=== PATIENT | female | born 1980 | race Caucasian/White ===

== ENCOUNTER → 2018-07-19 | Emergency (ER) | payer MEDICAID ==
[~2018-07-19] VITALS: Ht 162.6 cm; Wt 54.0 kg
[~2018-07-19] MED LIST: BENZ-16 PO; GABA-530 PO; HYDROcodone/acetaminophen 5mg/325mg tablet PO ONE; NAPR-56 PO; benzonatate 100mg capsule PO ONE
[2018-07-19 09:40] VITALS: BP 119/82
== END | disposition home or self-care (01) ==
LOC: ER 09:28
DX: M94.0 Chondrocostal junction syndrome [Tietze] (principal); R05 Cough; F17.200 Nicotine dependence, unspecified, uncomplicated; Z88.6 Allergy status to analgesic agent; Z88.0 Allergy status to penicillin; Z88.1 Allergy status to other antibiotic agents
CPT/HCPCS: 99283

== ENCOUNTER 2018-07-27 10:28 | Emergency (ER) | payer MEDICAID ==
[~2018-07-27] VITALS: Ht 162.6 cm; Wt 54.6 kg
[~2018-07-27 10:28] MED LIST changes: -HYDROcodone/acetaminophen 5mg/325mg tablet PO ONE; -benzonatate 100mg capsule PO ONE
[2018-07-27 10:47] VITALS: BP 135/86
[2018-07-27] MEDS ORDERED: HYDROcodone/acetaminophen 10/325mg tab PO ONE (12:25)
[2018-07-27 12:58] LABS: BASOPHILS # (AUTO) 0.1 X10'3 (0-0.2); BASOPHILS % (AUTO) 0.8 % (0-1); EOSINOPHILS # (AUTO) 0.7 X10'3 (0-0.9); EOSINOPHILS % (AUTO) 6.8 % (0-6); HEMATOCRIT 41.6 % (35.0-45.0); HEMOGLOBIN 14.3 g/dl (12.0-16.0); LYMPHOCYTES # (AUTO) 1.8 X10'3 (1.1-4.8); LYMPHOCYTES % (AUTO) 18.3 % (21-51); MEAN CORPUSCULAR HEMOGLOBIN 31.3 PG (27.0-31.0); MEAN CORPUSCULAR HGB CONC 34.3 g/dL (33.0-36.5); MEAN CORPUSCULAR VOLUME 91.3 FL (78-98); MEAN PLATELET VOLUME 7.6 FL (7.4-10.4); MONOCYTES # (AUTO) 0.5 X10'3 (0-0.9); NEUTROPHILS # (AUTO) 6.8 X10'3 (1.8-7.7); NEUTROPHILS % (AUTO) 69.1 % (42-75); PLATELET COUNT 408 X10'3 (140-440); RED BLOOD COUNT 4.55 X10'6 (4.20-5.60); RED CELL DISTRIBUTION WIDTH 14.7 % (11.5-14.5); WHITE BLOOD COUNT 9.8 X10'3 (4.5-11.0)
[2018-07-27] MEDS ORDERED: HYDR-3965 PO (13:07)
[2018-07-27] MEDS ORDERED: LIDO30CR23 TOP (13:07)
[2018-07-27 13:18] LABS: CLARITY,URINE CLEAR (Clear); COLOR,URINE YELLOW (Yellow); GLUCOSE, URINE NEGATIVE (Neg); KETONES,URINE NEGATIVE (Neg); LEUKOCYTE ESTERASE ,URINE NEGATIVE (Neg); NITRITES, URINE NEGATIVE (Neg); OCCULT BLOOD,URINE NEGATIVE (Neg); PH,URINE 7.5 (4.8-8.0); PROTEIN,URINE NEGATIVE (Neg); UROBILINOGEN,URINE 0.2 E.U/dL (0.2-1.0)
[2018-07-27 13:25] LABS: URINE AMPHETAMINE SCREEN NEGATIVE (Neg); URINE BARBITUATE SCREEN NEGATIVE (Neg); URINE BENZODIAZEPINES SCREEN NEGATIVE (Neg); URINE CANNABINOID SCREEN NEGATIVE (Neg); URINE COCAINE SCREEN NEGATIVE (Neg); URINE METHADONE SCREEN NEGATIVE (Neg); URINE OPIATE SCREEN NEGATIVE (Neg); URINE PHENCYCLIDINE SCREEN NEGATIVE (Neg)
[2018-07-27 13:49] LABS: D-DIMER 0.24 MG/L FEU (0-0.50)
[2018-07-27 13:50] LABS: UA COLLECTION TYPE CLN CATCH MIDSTREAM
== END 2018-07-27 13:41 | disposition home or self-care (01) ==
LOC: ER 10:28
DX: S22.41XA Multiple fractures of ribs, right side, initial encounter for closed fracture (principal); R05 Cough; F17.200 Nicotine dependence, unspecified, uncomplicated; Z88.6 Allergy status to analgesic agent; Z88.0 Allergy status to penicillin; Z88.1 Allergy status to other antibiotic agents; X58.XXXA Exposure to other specified factors, initial encounter; Y93.89 Activity, other specified; Y92.89 Other specified places as the place of occurrence of the external cause; Y99.8 Other external cause status
CPT/HCPCS: 36415; 71101; 80305; 81003; 85025; 85379; 99284

== ENCOUNTER 2018-08-07 10:07 | Emergency (ER) | payer MEDICAID ==
[~2018-08-07] VITALS: Ht 162.6 cm; Wt 48.0 kg
[~2018-08-07 10:07] MED LIST changes: -BENZ-16 PO; +HYDR-3965 PO; +LIDO30CR23 TOP
[2018-08-07 10:29] VITALS: BP 124/89
[2018-08-07] MEDS ORDERED: HYDR-4383 PO (10:50)
== END 2018-08-07 11:06 | disposition home or self-care (01) ==
LOC: ER 10:08
DX: S22.41XG Multiple fractures of ribs, right side, subsequent encounter for fracture with delayed healing (principal); X58.XXXD Exposure to other specified factors, subsequent encounter; Z88.6 Allergy status to analgesic agent; Z88.1 Allergy status to other antibiotic agents; Z88.0 Allergy status to penicillin
CPT/HCPCS: 99283

== ENCOUNTER 2021-08-07 23:51 | Emergency (ER) | payer MEDICAID ==
[~2021-08-07] VITALS: Ht 162.6 cm; Wt 48.8 kg
[~2021-08-07 23:51] MED LIST changes: -HYDR-3965 PO; +HYDR-4383 PO; +LIDO30CR TOP; -LIDO30CR23 TOP; -NAPR-56 PO
[2021-08-08 01:19] VITALS: BP 132/85
[2021-08-08] MEDS ORDERED: TETanus/Pertussis (Acell)/Diphther VAC/PF (Tdap-Adult) 0.5ml syringe IMVAC ONE (01:25)
[2021-08-08] MEDS ORDERED: amox tr/potassium clavulanate 875/125mg TAB PO ONE (01:25)
[2021-08-08] MEDS ORDERED: HYDROcodone/acetaminophen 10/325mg tab PO ONE (01:30)
[2021-08-08 02:57] LABS: HCG SERUM QL NEGATIVE
[2021-08-08] MEDS ORDERED: DOXYCYCLINE 100MG CAPSULE PO STA (03:55)
[2021-08-08] MEDS ORDERED: DOXY-1 PO (04:15)
== END 2021-08-08 04:29 | disposition home or self-care (01) ==
LOC: ER 23:51
DX: S61.542A Puncture wound with foreign body of left wrist, initial encounter (principal); W55.01XA Bitten by cat, initial encounter; Y93.89 Activity, other specified; Y92.89 Other specified places as the place of occurrence of the external cause; Y99.8 Other external cause status
CPT/HCPCS: 36415; 73130; 84703; 90471; 90715; 99284

== ENCOUNTER 2021-12-13 05:22 | Emergency (ER) | payer MEDICAID ==
[~2021-12-13] VITALS: Ht 162.6 cm; Wt 41.0 kg
[2021-12-13 05:54] VITALS: BP 112/86
== END 2021-12-13 06:26 | disposition left against medical advice (07) ==
LOC: ER 05:24
DX: F41.9 Anxiety disorder, unspecified (principal); Z53.21 Procedure and treatment not carried out due to patient leaving prior to being seen by health care provider

== ENCOUNTER 2022-05-09 22:37 | Emergency (ER) | payer MEDICAID ==
[~2022-05-09] VITALS: Ht 160 cm; Wt 56.8 kg
[2022-05-09 22:40] VITALS: BP 131/86
[2022-05-09 23:09] LABS: HCG SERUM QL NEGATIVE
== END 2022-05-09 23:23 ==
LOC: ER 22:38
DX: Z88.0 Allergy status to penicillin; Z88.1 Allergy status to other antibiotic agents; Z88.6 Allergy status to analgesic agent
CPT/HCPCS: 36415; 84703; 99283

== ENCOUNTER 2022-05-12 09:33 | Emergency (ER) | payer MEDICAID ==
[~2022-05-12] VITALS: Ht 162.6 cm; Wt 47.7 kg
[2022-05-12 10:22] VITALS: BP 114/74
[2022-05-12] MEDS ORDERED: ketorolac trometh. 30mg/ml inj. IM ONE (11:10)
[2022-05-12] MEDS ORDERED: ACET-1008 PO (11:15)
--- NOTE | 2022-05-12 12:41 | NUR ---
PT EDUCATION DONE BY PROVIDER KARLEE JARRETT. QUESTIONS ANSWERED PER PATIENT REQUEST DONE BY SANTIAGO ZHU
== END 2022-05-12 12:42 | disposition home or self-care (01) ==
LOC: ER 09:33
DX: S60.212A Contusion of left wrist, initial encounter (principal); S60.211A Contusion of right wrist, initial encounter; F15.10 Other stimulant abuse, uncomplicated; Z88.6 Allergy status to analgesic agent; Z88.0 Allergy status to penicillin; Z79.899 Other long term (current) drug therapy; Z88.1 Allergy status to other antibiotic agents; X58.XXXA Exposure to other specified factors, initial encounter; Y93.89 Activity, other specified; Y99.8 Other external cause status; Y92.89 Other specified places as the place of occurrence of the external cause
CPT/HCPCS: 73130; 96372; 99283; J1885